=== PATIENT | male | born 1955 | race Caucasian/White ===

== ENCOUNTER → 2023-10-21 09:02 | Outpatient (REF) | payer OTHER, SELFPAY | LOC: HWRAD 09:02 | PROVIDERS: ATTENDING PHYSICIAN Family Medicine | DX: K42.9 Umbilical hernia without obstruction or gangrene (principal) | CPT/HCPCS: 76705 ==

== ENCOUNTER → 2023-11-06 07:09 | Outpatient (REF) | payer OTHER, SELFPAY | LOC: RAD 07:09 | PROVIDERS: ATTENDING PHYSICIAN Internal Medicine Hematology & Oncology; FAMILY PHYSICIAN Family Medicine | DX: C34.91 Malignant neoplasm of unspecified part of right bronchus or lung (principal) | CPT/HCPCS: 71250 ==

== ENCOUNTER → 2024-01-31 14:30 | Outpatient (REF) | payer OTHER, SELFPAY | LOC: RAD 14:30 | PROVIDERS: ATTENDING PHYSICIAN Physician Assistant | DX: M25.562 Pain in left knee (principal) | CPT/HCPCS: 73564 ==

== ENCOUNTER 2024-02-13 06:24 | Day surgery (SDC) | payer OTHER, SELFPAY ==
[2024-01-16 13:56] VITALS: BMI 26.6
[2024-02-13] VITALS (9 sets, daily range): BP systolic 112–131; BP diastolic 69–84; BMI 26.6
--- NOTE | 2024-02-13 11:41 | W.SUR.PREOP ---
Pre-Operative Surgical Note
-
I have examined this patient prior to the performance of the scheduled procedure.
The patient's condition is unchanged from the time of the current History and
Physical and the patient is able to undergo the scheduled procedure.
--- NOTE | 2024-02-13 11:41 | HP.FOC2 ---
Focused History & Physical
Chief Complaint
HPI:
Chief Complaint: Umbilical/incisional hernia
HPI / Indication for Planned Procedure: Recurrent symptomatic umbilical hernia/incisional hernia
Relevant Past Medical History: Negative
Relevant Social History: Negative
Relevant Family History: Negative
Relevant Past Surgical History: Positive for (Open umbilical hernia repair with mesh)
Review of Systems
Review of Pertinent Systems: All Systems Negative
Medication
See Medication form for detailed medications: Yes
Medication List (including Herbals & OTC):
amlodipine 10 mg tablet 10 mg PO DAILY 06/29/16
carvedilol 6.25 mg tablet 6.25 mg PO BID 06/29/16
albuterol sulfate 90 mcg/actuation aerosol inhaler 2 puff inhalation R Q4HPRN PRN sob 02/17/21
alprazolam 1 mg tablet 1 mg PO PRN PRN anxiety 02/17/21
levothyroxine 112 mcg tablet 112 mcg PO DAILY 02/17/21
potassium chloride 20 mEq tablet,extended release(part/cryst) (Klor-Con M) 20 meq PO DAILY 02/17/21
tiotropium 2.5 mcg-olodaterol 2.5 mcg/actuation mist for inhalation (Stiolto Respimat) 2 puff IH DAILY 02/17/21
allopurinol 100 mg tablet 100 mg PO DAILY 05/23/22
atorvastatin 20 mg tablet 20 mg PO DAILY 05/23/22
cholecalciferol (vitamin D3) 25 mcg (1,000 unit) capsule (Vitamin D3) 25 mcg PO DAILY 05/23/22
valsartan 320 mg-hydrochlorothiazide 25 mg tablet 1 tab PO DAILY 05/23/22
acetaminophen 650 mg tablet,extended release 1,300 mg PO Q12H PRN PAIN 02/04/24
alfuzosin 10 mg tablet,extended release 24 hr 10 mg PO 1800 02/04/24
aspirin 81 mg capsule 81 mg PO DAILY 02/04/24
biotin 10,000 mcg capsule 10,000 mcg PO DAILY 02/04/24
calcium carbonate (Calcium 600) 600 mg PO DAILY 02/04/24
magnesium 250 mg tablet 500 mg PO DAILY 02/04/24
Medications Reviewed: Yes
Allergies and Reactions
Patient has Allergies: No
Noted Allergies and Reactions:
Allergy/AdvReac Type Severity Reaction Status Date / Time
No Known Allergies Allergy Verified 02/04/24 09:59
Pertinent Physical Exam
All Other Systems: Negative
Head/Neck: Normal
Diagnosis / Assessment
This is a 68-year-old male with an incisional hernia (prior open umbilical hernia repair with mesh)
Plan / Procedure
Will plan for robotic incisional hernia repair with mesh.
Anesthesia/Sedation to be done by Anesthesia Provider: Yes
[2024-02-13] MEDS: TYLENOL 1000 MG PO (13:00)
[2024-02-13] MEDS: NORMOSOL-R/PLASMALYTE-A 1000 IV (13:03)
--- NOTE | 2024-02-13 15:34 | W.IMMPOSTOP ---
Surgical Immed Post Op Note
-
Primary Surgeon: Ever Tillman MD
Assisting Surgeon: None
Pre-op Diagnosis: Incisional hernia
Post-op Diagnosis: Same
Procedure Performed: Robotic incisional hernia repair with mesh (MARKO)
Anesthesia Type: General
Specimen / Cultures: None
Estimated Blood Loss: 3 cc
Complications: None
Operative Findings: 1 x 1 cm infraumbilical incisional defect containing preperitoneal fat reduced. The defect was closed with a 0 V-Loc 180. The Prolene sutures from the patient's prior umbilical hernia repair was left in place. In total the
area of the defects was roughly 3 cm long by 1 cm wide. The repair was reinforced with an 11 x 1 cm Bard soft mesh in the preperitoneal space.
--- NOTE | 2024-02-13 15:41 | OR.RPT ---
Operative Report
Operative Report
Patient Name: Mayco De Souza
: 1955
Date of Operation: 02/13/2024
Preoperative Diagnosis: Incisional hernia
Postoperative Diagnosis: Same
Procedure(s):
Robotic incisional hernia repair with mesh (MARKO approach)
Surgeon(s):
Dr. Tillman
Social Services Aide(s):
JAYE Rodriguez
Anesthesia: General
Estimated Blood Loss: 3 cc
Urine Output: None
Drains/Lines/Implants:
11 x 11 cm round Bard soft mesh
Specimens:
None
HPI/Surgical Indications:
This is a 68-year-old male with a prior open umbilical hernia repair who was seen in my office for a symptomatic incisional bulge concerning for an incisional hernia. Risks/Benefits/Alternatives were discussed at length, and the patient agreed to
proceed with surgery.
Operative Findings: 1 x 1 cm infraumbilical incisional defect containing preperitoneal fat reduced. The defect was closed with a 0 V-Loc 180. The Prolene sutures from the patient's prior umbilical hernia repair was left in place. In total the
area of the defects was roughly 3 cm long by 1 cm wide. The repair was reinforced with an 11 x 1 cm Bard soft mesh in the preperitoneal space.
Procedure Description:
The patient was brought to the Operating Room and placed in the supine position with the arms tucked. IV antibiotics were infused and Venodyne stockings placed. Following uneventful induction of general endotracheal anesthesia, an orogastric tube
were placed. The abdomen was prepped and draped in the usual sterile fashion. The abdomen was entered using a Veress technique which required 1 pass, pneumoperitoneum to 15 mmHg was obtained without difficulty. An 8mm trochar was passed through
the abdominal wall roughly 20 cm laterally from the defect in the left upper quadrant, we then confirmed that no inadvertent injury was made while passing the trocar or Veress needle. We then placed two additional 8 mm ports in the left lower
quadrant. Bilateral tap blocks were performed. The robot was docked. We then introduced our prograsper through the inferior/left hand port and a monopolar scissors through the superior port. We then turned our attention to the hernia which had
no intra-abdominal contents. We then began taking a flap down roughly 6 cm away from the defect and roughly 12 cm in length taking care to stay in the pre-transversalis plane. The preperitoneal fat was taken down off of the posterior rectus sheath
both superior and inferior to the hernia defect such that we were able to get our 'volcano sign'. We then worked on reducing the defect which contained preperitoneal fat and continued our dissection out laterally for an additional 6 cm. We could
readily identify the previous umbilical hernia repair with [address]. This recurrent defect was about 1 cm caudal to this original repair and measured roughly 1 x 1 cm for a total area of 3 cm long by 1 cm wide. Once our flap
was created we introduced a ruler and 2 0 V-Loc 180 sutures. The pocket measured 12 x 12 cm. I had my emergency veterinary assistant cut a 11 x 11 cm piece of Bard soft mesh marked with 0 Vicryl suture at the center, as I closed the umbilical defect, as well as an
additional small rent in the posterior sheath that was made during the dissection in the left upper quadrant. The mesh was then sutured to the posterior rectus sheath in 4 quadrants with 2-0 vircyls to ensure good apposition. A 2-0 Monocryl was
introduced which was used to close our flap. There were multiple rents in the flap that were closed with the 2-0 Vicryl suture. All sutures were removed. The robot was undocked. The ports were removed under direct visualization and
pneumoperitoneum was evacuated. The port sites were closed with 4-0 Monocryl followed by Dermabond. Counts were correct and overall, the patient tolerated the procedure well and was taken to the Recovery Room postoperatively in stable condition.
I was the attending physician and performed the procedure with assistance from the PA above. The assistance of JAYE Rodriguez was required due to the complexity of the procedure. During the procedure Poonam assisted with exchanging instruments,
passing needles and mesh and closure of the wound. I was present for all portions of the case except for skin closure.
Ever Tillman MD
--- NOTE | 2024-02-13 17:16 | SUR.PHASEI ---
comfortable in pacu - vss, encourage deep breathing and encourage patient to sleep in recliner tonite. Encourage deep breathing, and coughing. minimal abdominal discomfort, refuse pain med
[2024-02-13] MEDS: ROXICODONE 5 MG PO (17:22)
== END 2024-02-13 17:33 | disposition home or self-care (01) ==
LOC: SDS 06:24
PROVIDERS: ATTENDING PHYSICIAN Surgery; FAMILY PHYSICIAN Family Medicine; OTHER PHYSICIAN Internal Medicine Cardiovascular Disease
DX: K43.2 Incisional hernia without obstruction or gangrene (principal)
CPT/HCPCS: 49593; 36415; 93005; C1781

== ENCOUNTER → 2024-09-04 13:26 | Outpatient (REF) | payer OTHER, SELFPAY | LOC: RAD 13:26 | PROVIDERS: ATTENDING PHYSICIAN Family Medicine | DX: M79.671 Pain in right foot (principal) | CPT/HCPCS: 73630 ==

== ENCOUNTER → 2024-11-12 10:07 | Outpatient (REF) | payer OTHER, SELFPAY | LOC: RAD 10:07 | PROVIDERS: ATTENDING PHYSICIAN Internal Medicine Hematology & Oncology; FAMILY PHYSICIAN Family Medicine | DX: C34.91 Malignant neoplasm of unspecified part of right bronchus or lung (principal) | CPT/HCPCS: 71250 ==